=== PATIENT | male | born 1990 | race Caucasian/White ===

== ENCOUNTER 2021-12-15 19:33 | Emergency (ER) | payer OTHER ==
[2021-12-15 19:50] VITALS: BP 136/70; PULSE 68; TEMP 98; BMI 23.1
[2021-12-15] MEDS ORDERED: DIPHTH,PERTUSS(ACELL),TET 0.5 ML DISP.SYRIN IM ONE ×2 (20:05→20:27)
[2021-12-15] MEDS ORDERED: BACITRACIN 15 GM TUBE TOPICAL OINTMENT TP ONE (20:26)
[2021-12-15] MEDS ORDERED: BACITRACIN 15 GM TUBE TOPICAL OINTMENT ONE (20:27)
== END 2021-12-15 20:35 | disposition home or self-care (01) ==
LOC: JER 19:33
PROC: 3E0234Z Introduction of Serum, Toxoid and Vaccine into Muscle, Percutaneous Approach (ICD-10-PCS; principal; 2021-12-15)
DX: S80.212A Abrasion, left knee, initial encounter (principal); M25.462 Effusion, left knee; V28.0XXA Motorcycle driver injured in noncollision transport accident in nontraffic accident, initial encounter
CPT/HCPCS: 73562-TC-LT-FY; 90471; 90715; 99284-25

== ENCOUNTER 2022-02-18 02:19 | Emergency (ER) | payer OTHER ==
[2022-02-18 02:34] VITALS: BP 128/81; PULSE 61; RESP 19; TEMP 98.1; BMI 23.1
== END 2022-02-18 03:06 | disposition home or self-care (01) ==
LOC: JER 02:19
DX: Z00.00 Encounter for general adult medical examination without abnormal findings (principal)
CPT/HCPCS: 74018-TC-FY; 99283-25